=== PATIENT | female | born 1995 | race Caucasian/White ===

== ENCOUNTER 2019-11-11 18:29 | Emergency (ER) | payer MEDICAID ==
[~2019-11-11] VITALS: Ht 157.5 cm; Wt 66.2 kg
[2019-11-11 18:52] VITALS: Ht 157.5 cm; Wt 66.2 kg
[2019-11-11 19:55] VITALS: BP 112/63
== END 2019-11-11 20:06 | disposition home or self-care (01) ==
LOC: ED 18:29
DX: J02.9 Acute pharyngitis, unspecified (principal)
CPT/HCPCS: J0561; J1100

== ENCOUNTER 2020-03-24 08:43 | Emergency (ER) | payer OTHER ==
[~2020-03-24] VITALS: Ht 157.5 cm; Wt 64.0 kg
[2020-03-24 08:57] VITALS: Ht 157.5 cm; Wt 64.0 kg
[2020-03-24 10:34] VITALS: BP 126/69
== END 2020-03-24 10:34 | disposition home or self-care (01) ==
LOC: ED 08:43
DX: S20.212A Contusion of left front wall of thorax, initial encounter (principal); S30.1XXA Contusion of abdominal wall, initial encounter; S40.022A Contusion of left upper arm, initial encounter; V43.62XA Car passenger injured in collision with other type car in traffic accident, initial encounter; Y93.89 Activity, other specified; Y92.411 Interstate highway as the place of occurrence of the external cause; Y99.8 Other external cause status